=== PATIENT | female | born 2000 | race Caucasian/White ===

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

== ENCOUNTER 2021-07-10 18:12 | Emergency (ER) | payer MEDICAID ==
[~2021-07-10] VITALS: Ht 162.6 cm; Wt 53.0 kg
[~2021-07-10 18:12] MED LIST: CEPH500C2 MT; IBUP-2029 MT
[2021-07-10 21:19] LABS: CLARITY URINE CLEAR (CLEAR); COLOR URINE YELLOW (YELLOW); KETONES URINE NEGATIVE (NEGATIVE); LEUKOCYTE ESTERASE URINE NEGATIVE (NEGATIVE); NITRITE URINE NEGATIVE (NEGATIVE); OCCULT BLOOD URINE NEGATIVE (NEGATIVE); PROTEIN URINE NEGATIVE (NEGATIVE); SPECIFIC GRAVITY URINE 1.007 (1.005-1.030); UROBILINOGEN URINE 0.2 E.U./dL (0.2-1.0)
[2021-07-10] MEDS ORDERED: MAGNESIUM/ALUMINUM HYDROXIDE/SIMETHICONE 30ML UDC PO STA (21:26)
[2021-07-10] MEDS ORDERED: DICYCLOMINE 10 MG/5 ML ORAL SYR PO STA (21:26)
[2021-07-10 21:30] LABS: BASOPHILS % 0.6 % (0.0-2.0); EOSINOPHILS % 0.9 % (0.0-5.0); HEMATOCRIT. 36.7 % (36.0-48.0); HEMOGLOBIN. 12.4 g/dL (12.0-16.0); LYMPHOCYTES % 37.4 % (20.0-50.0); MEAN CORPUSCULAR HEMOGLOBIN 29.9 pg (28.0-32.0); MEAN CORPUSCULAR VOLUME 88.1 fL (81.0-99.0); MEAN PLATELET VOLUME 8.5 fl (7.4-10.4); MONOCYTES % 7.4 % (2.0-8.0); NEUTROPHILS % 53.7 % (40.0-76.0); PLATELET 301 x1000/uL (130-400); RED BLOOD CELL COUNT 4.17 mill/uL (4.2-5.4); RED CELL DISTRIBUTION WIDTH 13.2 % (11.6-14.6)
[2021-07-10 21:31] LABS: CHLORIDE 107 mEq/L (98-107)
[2021-07-10 21:42] LABS: B-HCG QUANTITATIVE < 1 mIU/mL (<3)
[2021-07-11 00:24] VITALS: BP 106/67
== END 2021-07-11 00:26 | disposition home or self-care (01) ==
LOC: ER 18:12
DX: R10.33 Periumbilical pain (principal); S61.213A Laceration without foreign body of left middle finger without damage to nail, initial encounter; X58.XXXA Exposure to other specified factors, initial encounter; Y93.89 Activity, other specified; Y92.89 Other specified places as the place of occurrence of the external cause
CPT/HCPCS: 36415; 74176; 80053; 81003; 81025; 83690; 84702; 85025; 99284; Z7610; 12001

== ENCOUNTER 2022-01-25 17:02 | Emergency (ER) | payer MEDICAID ==
[~2022-01-25] VITALS: Ht 170.2 cm; Wt 56.0 kg
[2022-01-25] MEDS ORDERED: SODIUM CHLORIDE 0.9% 1,000 ML IV ONE (18:00)
[2022-01-25] MEDS ORDERED: MORPHINE SULFATE 4 MG/ML CPJ (NOT FOR IM USE) IV ONE (18:00)
[2022-01-25] MEDS ORDERED: ONDANSETRON HCL 4MG/2ML INJ IV ONE (18:00)
[2022-01-25 18:54] LABS: BASOPHILS % 0.2 % (0.0-2.0); HEMOGLOBIN. 13.8 g/dL (12.0-16.0); MEAN CORPUSCULAR HEMOGLOBIN 29.5 pg (28.0-32.0); MEAN CORPUSCULAR VOLUME 87.6 fL (81.0-99.0); MEAN PLATELET VOLUME 8.2 fl (7.4-10.4); MONOCYTES % 4.3 % (2.0-8.0); NEUTROPHILS % 86.5 % (40.0-76.0); PLATELET 328 x1000/uL (130-400); RED BLOOD CELL COUNT 4.69 mill/uL (4.2-5.4); RED CELL DISTRIBUTION WIDTH 13.3 % (11.6-14.6)
[2022-01-25 18:57] LABS: CHLORIDE 106 mEq/L (98-107)
[2022-01-25 19:23] LABS: B-HCG QUANTITATIVE 48654 mIU/mL (<3)
[2022-01-25 20:36] LABS: CLARITY URINE CLEAR (CLEAR); COLOR URINE YELLOW (YELLOW); KETONES URINE 4+ (NEGATIVE); LEUKOCYTE ESTERASE URINE NEGATIVE (NEGATIVE); NITRITE URINE NEGATIVE (NEGATIVE); OCCULT BLOOD URINE 3+ (NEGATIVE); PROTEIN URINE 1+ (NEGATIVE); SPECIFIC GRAVITY URINE 1.018 (1.005-1.030); UROBILINOGEN URINE 0.2 E.U./dL (0.2-1.0)
[2022-01-25] MEDS ORDERED: HYDR-4001 MT (20:52)
[2022-01-25] MEDS ORDERED: HYDROCODONE/ACETAMINOPHEN 5/325MG TABLET PO ONE (21:15)
[2022-01-25 21:30] VITALS: BP 110/62
== END 2022-01-25 21:30 | disposition home or self-care (01) ==
LOC: ER 17:02
DX: O23.41 Unspecified infection of urinary tract in pregnancy, first trimester (principal); N39.0 Urinary tract infection, site not specified; Z3A.01 Less than 8 weeks gestation of pregnancy
CPT/HCPCS: 36415; 76801; 76817; 80053; 81003; 81025; 84702; 85025; 86850; 86900; 86901; 96361; 96374; 96375; 99284; J2270; J2405; J7030

== ENCOUNTER 2022-01-26 00:48 | Emergency (ER) | payer MEDICAID, OTHER ==
[~2022-01-26] VITALS: Ht 170.2 cm; Wt 55.0 kg
[~2022-01-26 00:48] MED LIST changes: +HYDR-4001 MT
[2022-01-26 02:06] VITALS: BP 116/67
== END 2022-01-26 03:52 | disposition home or self-care (01) ==
LOC: ER 00:48
DX: R45.89 Other symptoms and signs involving emotional state (principal); Z63.79 Other stressful life events affecting family and household
CPT/HCPCS: 99281

== ENCOUNTER 2022-04-08 22:56 | Emergency (ER) | payer OTHER ==
[~2022-04-08] VITALS: Ht 170.2 cm; Wt 55.0 kg
[2022-04-09] MEDS ORDERED: IBUPROFEN 600MG TABLET PO ONE (03:15)
[2022-04-09] MEDS ORDERED: IBUP-2029 MT (03:40)
[2022-04-09 04:30] VITALS: BP 120/75
== END 2022-04-09 04:33 | disposition home or self-care (01) ==
LOC: ER 22:56
DX: S83.094A Other dislocation of right patella, initial encounter (principal); W50.2XXA Accidental twist by another person, initial encounter; Y93.89 Activity, other specified; Y92.89 Other specified places as the place of occurrence of the external cause; Y99.8 Other external cause status; Z79.899 Other long term (current) drug therapy; Z98.890 Other specified postprocedural states
CPT/HCPCS: 73560; 81025; 99283; L1830